=== PATIENT | female | born 1935 | race African-American/Black ===

== ENCOUNTER → 2016-06-11 | Outpatient (CLI) | payer MEDICARE, BC ==
[2015-11-12 01:23] VITALS: BP 158/69
[~2016-06-11] MED LIST: ALPR0.5T6 PO; ASPI-482 PO; CHLO25TA PO; CLON0.1T PO; CLON1PAT TD; HYDR100T24 PO; ISOS30TA17 PO; LOSA50TA6 PO; MAGN400C PO; METO-269 PO; NIFE30TA38 PO; OMEP20TA PO; OXYC-323 PO; POTA20TA12 PO; RANI150C PO; SIMV40TA3 PO
--- NOTE | 2016-06-12 14:33 | EKG ---
[facility] [address] [place] [address] Test Date: 2016-06-11 Test Time: 12:32:29 Pat Name: PATEL MC Department: Room: Gender: F Leather Splitter: Nathan Shepherd : 1935 Requested By: ARNAUD ALEJO Order Number: [id number] Reading MD: Interpretive Statements
== END | disposition home or self-care (01) ==
LOC: EKG 10:22
PROVIDERS: ATTEND Specialist
DX: R00.2 Palpitations (principal)
CPT/HCPCS: 93225; 93226

== ENCOUNTER → 2016-12-04 | Outpatient (CLI) | payer MEDICARE, BC ==
[2016-07-16 15:00] VITALS: BP 134/72
[~2016-12-04] MED LIST changes: +AMLO10TA2 PO; +ATOR40TA59 PO; +CLOP75TA PO; +FAMO20TA5 PO; +FURO20TA3; +FURO20TA3 PO; +HYDR50TA; +HYDR50TA PO; -ISOS30TA17 PO; +ISOS30TA19 PO; +ISOS30TA4 PO; +METO50TA2 PO; -OMEP20TA PO; +OMEP20TA8 PO; +POTA10TA12 PO; +RANI150T2; +TEMA15CA PO
--- NOTE | 2016-12-04 11:12 | KCIC ---
3 view right knee HISTORY: Right knee pain after a fall 4-6 weeks ago. COMPARISON: None FINDINGS: There is generalized bone demineralization. Soft tissue vascular type calcifications are noted. No evidence of an acute fracture or aggressive bone destruction. Note that the degree of demineralization could limit detection of a nondisplaced fracture. Joint spaces are intact. No evidence of dislocation. IMPRESSION: Bone demineralization. No definite acute radiographic abnormality. Electronically signed by: Macario Woodruff MD (12/04/2016 11:09 AM) [facility]
== END | disposition home or self-care (01) ==
LOC: KCIC 10:15
PROVIDERS: ATTEND Specialist
DX: M81.0 Age-related osteoporosis without current pathological fracture (principal); W19.XXXD Unspecified fall, subsequent encounter
CPT/HCPCS: 73562

== ENCOUNTER → 2016-12-04 | Outpatient (CLI) | payer MEDICARE, BC ==
[2016-07-16 15:00] VITALS: BP 134/72
--- NOTE | 2016-12-04 11:34 | KCIC ---
EXAM: Bilateral screening mammogram. HISTORY: 81-year-old female presents for screening mammography. TECHNIQUE: Full-field digital craniocaudal and mediolateral oblique views of both breasts are obtained for evaluation. Computer aided detection with [employer] software version 9.3 was applied. COMPARISON: 10/18/2015 BREAST PARENCHYMAL DENSITY: Level B - Scattered fibroglandular densities. FINDINGS: There is no new suspicious mass, microcalcification or region of architectural distortion. There is stable nodularity within the inferior, superior and retroareolar left breast. There are benign calcifications within both breasts. There is a left cardiac pacemaker partially included on the [id number]. IMPRESSION: BI-RADS Category 2: Benign finding(s). RECOMMENDATION: Annual mammography is recommended. If your mammogram demonstrates that you have dense breast tissue, which could hide abnormalities, and if you have other risk factors for breast cancer that have been identified, you might benefit from supplemental screening tests that may be suggested by your ordering physician. Dense breast tissue, in and of itself, is a relatively common condition. This information is not provided to cause undue concern, but rather to raise your awareness and to promote discussion with your physician regarding the presence of other risk factors, in addition to dense breast tissue. A report of your mammography results will be sent to you and your physician. You should contact your physician if you have any questions or concerns regarding this report. Mammography is a sensitive method for finding small breast cancers, but it does not detect them all and is not a substitute for careful clinical examination. A negative mammogram does not negate a clinically suspicious finding and should not result in delay in biopsying a clinically suspicious abnormality. PQRS compliance statement - Patient information was entered into a reminder system with a target due date for the next mammogram. "Our facility is accredited by the [employer] Mammography Program." Electronically signed by: Fe Whitten MD (12/04/2016 11:31 AM) [id number]
== END | disposition home or self-care (01) ==
LOC: KCIC MAMMO 10:11
PROVIDERS: ATTEND Specialist
DX: Z12.31 Encounter for screening mammogram for malignant neoplasm of breast (principal)
CPT/HCPCS: G0202; 77067

== ENCOUNTER → 2020-10-04 | Outpatient (CLI) | payer MEDICARE, MEDICAID ==
[2016-07-16 15:00] VITALS: BP 134/72
[~2020-10-04] MED LIST changes: +AMLO-187 PO; -AMLO10TA2 PO; +CALC-31 PO; +CETI10TA16 PO; -CHLO25TA PO; +CHLO25TA10 PO; +DOCU-109 PO; +FLUT10.6 IH; -ISOS30TA4 PO; +ISOS30TA68 PO; +LOSA-73 PO; -LOSA50TA6 PO; -METO50TA2 PO; +METO50TA6 PO; +NIFE-11 PO; -NIFE30TA38 PO; +NIFE30TA95 PO; -OXYC-323 PO; +OXYC1TAB15 PO; -POTA10TA12 PO; +POTASSIUM CHLO10 ME1 PO; +SIMV40TA18 PO; -SIMV40TA3 PO; +SPIR25TA5 PO
--- NOTE | 2020-10-04 15:40 | PDOC1 ---
INITIAL PAIN CONSULT DATE OF SERVICE: DOS: DATE: 10/04/20 TIME: 15:30 CHIEF COMPLAINT: Chief Complaint: Neck and bilateral upper extremity pain HISTORY OF PRESENT ILLNESS: 85-year-old female presents history of pain in the base the neck and bilateral shoulders right essentially equal to left with pain increasing over time patient reports has been that way for "many years" increasing over the past 6 months or so not the result of any specific injury or accident that she is aware of. Patient reports the pain is in the base of neck and shoulders rating the upper extremities mostly into the upper arms anteriorly in the bicep regions and occasionally the forearms mostly in the upper arms and neck patient reports this is worse with repetitive motions lifting items overhead with either of her arms sleeping at night has been disturbed because of the pain occasionally but not every night patient reports is better with sitting or laying down resting her head which is supported posteriorly worse with forward flexion and reading as well as reaching and weightbearing repetitive motions upper extremities. Patient reports of the arms are fatigued but no complete motor loss. Patient had cervical spine films showing severe disc degeneration from C3-T1 with mild to moderate cervical kyphosis. Patient has been taking oxycodone which does decrease the pain by about 50% also done physical therapy and has had some injections long time ago she is not sure what they were exactly physical therapy was helpful but only very briefly she still doing the exercises on her own at home. Patient also taking anti-inflammatory Motrin as well as Tylenol in addition to the oxycodone which both do help but only a small amount. PAST MEDICAL HISTORY: PMH: Hypertension, arthritis, heart disease, salivary gland tumor PREVIOUS SURGERIES: Past Surgical Hx: Appendectomy, cholecystectomy, hysterectomy, pacemaker placement, carpal tunnel release, right shoulder surgery, cataract extractions, salivary gland excision CURRENT MEDICATIONS: Current Meds: Active Scripts Medications Dose Route/Sig Max Daily Dose Days Date Category Spironolactone 25 Mg Tablet 1 Tab PO DAILY 10/04/20 Reported Nifedipine Er (Nifedipine) 30 Mg Tab.er.24 1 Tab PO DAILY 10/04/20 Reported Flovent 44MCG Hfa (Fluticasone Propionate) 10.6 Gm Aer.w.adap 2 Puff IH BID 10/04/20 Reported Calcium 500 + D Tablet (Calcium Carbonate/Vitamin D3) 1 Each Tablet 1 Tab PO DAILY 30 10/04/20 Reported Cetirizine Hcl 10 Mg Tablet 1 Tab PO DAILY 10/04/20 Reported Colace (Docusate Sodium) 100 Mg Capsule 100 Mg PO DAILY 10/04/20 Reported Aspir 81 (Aspirin) 81 Mg Tablet.dr 1 Tab PO DAILY 07/08/16 Reported Clopidogrel (Clopidogrel Bisulfate) 75 Mg Tablet 1 Tab PO DAILY 07/05/16 Reported Metoprolol Tartrate 50 Mg Tablet 50 Mg PO TID 07/05/16 Reported Atorvastatin Calcium 40 Mg Tablet 1 Tab PO QHS 07/05/16 Reported Magnesium (Magnesium Oxide) 400 Mg Capsule 1 Tab PO DAILY 02/08/15 Reported ALLERGIES; Allergies: Coded Allergies: Tetanus Vaccines and Toxoid (Verified Allergy, Severe, 07/15/16) SEVERE FAMILY HISTORY: Family Hx: No major medical problems or conditions that she is aware of SOCIAL HISTORY: Social Hx: Patient does not drink alcohol does not smoke not use any illegal illicit or recreational drugs is currently is retired and lives locally in [facility]. REVIEW OF SYSTEMS: ROS: Positive for those items mentioned in history of present illness, all systems are reviewed, otherwise negative ,and are complete full and well-documented on patient's chart. PHYSICAL EXAM: VS: Blood pressure is 120/75 pulse 87 respirations 18 temperature 98.0 F height is 5 feet 2 inches weight 139 pounds PE: PHYSICAL EXAMINATION: GENERAL: The patient is awake, alert, oriented, appropriate, very pleasant demeanor HEENT: Shows normocephalic, atraumatic. Extraocular movements are intact and symmetrical. Oral cavity: Mucous membranes moist and pink. NECK: Shows anterior throat supple without palpable lymphadenopathy noted. Swallow reflex symmetrical. CHEST: Shows normal on inspection. Breath sounds are clear bilaterally, distant but no rales rhonchi or wheezes auscultated. HEART: Shows S1, S2 clear. No murmurs auscultated. ABDOMEN: Soft, nontender, nondistended, obese. No palpable organomegaly is noted. No rebound or guarding demonstrated. BACK: Shows spine grossly in the midline. Normal-appearing cervical lordotic curvature. Cervical paraspinous muscles show symmetrical with inspection on palpation some moderate tenderness diffusely throughout the upper middle lower decrease the paraspinous muscle slightly more on the right than the left but present bilaterally into the superior medial trapezius as well but without asymmetry hypertrophy or atrophy. Patient shows no specific trigger points and no radiation of pain. Patient shows good rotation motion cervical spine both laterally greater than 45 degrees closer to 90 degrees without significant impairment with some mild guarding with extension but not with forward flexion and no radiation of pain with any rotational movement of the cervical spine. There is slightly increased thoracic kyphosis, some minor flattening of the lumbar lordotic curvature. EXTREMITIES: Upper extremities show deep tendon reflexes 2+ in the biceps and triceps tendons. Motor exam is 4 on a scale of 5 with right network systems consultant strength, biceps and triceps flexion and 5/5 on the left. Peripheral pulses are 2+ radial. No peripheral edema is noted bilaterally. Upper extremities are warm and dry to touch, equal in color and appearance. SKIN: Shows warm and dry, good turgor. No edema. No sores, rashes or bruising throughout. IMPRESSION: Impression: 85-year-old female with long history neck and bilateral upper extremity pain and radicular fashion Cervical spine films as noted Arthritis Hypertension Heart failure with pacemaker Plan: Options were discussed with patient including conservative medical management physical therapies interventional techniques. Patient would like to pursue interventional techniques as she is already doing physical therapy exercises and using oral analgesics and anti-inflammatories without significant decrease in pain. We discussed a cervical epidural steroid injection using descriptions as well as anatomical models to describe the procedure. Patient also taking Plavix and we will check with her co op to ensure that this is safe and appropriate to hold for 7 days prior to potential injection. Patient will continue with the Plavix until we receive word from her co op whether this is deemed safe and appropriate to hold. Patient will wait for preauthorization with her insurance provider and at that time we will plan on having her return for a translaminar C6-7 level cervical epidural steroid injection. DRAGAN MORALES MD October 04, 2020 15:40
== END | disposition home or self-care (01) ==
LOC: PNCL 13:32
PROVIDERS: ATTEND Anesthesiology
DX: M54.2 Cervicalgia (principal); M79.602 Pain in left arm; M79.601 Pain in right arm; I10 Essential (primary) hypertension; M19.90 Unspecified osteoarthritis, unspecified site; I11.9 Hypertensive heart disease without heart failure; J44.9 Chronic obstructive pulmonary disease, unspecified; K21.9 Gastro-esophageal reflux disease without esophagitis; F41.9 Anxiety disorder, unspecified; F32.9 Major depressive disorder, single episode, unspecified; Z90.49 Acquired absence of other specified parts of digestive tract; Z90.710 Acquired absence of both cervix and uterus; Z98.890 Other specified postprocedural states; Z87.891 Personal history of nicotine dependence; Z79.82 Long term (current) use of aspirin; Z79.899 Other long term (current) drug therapy; Z88.8 Allergy status to other drugs, medicaments and biological substances; Z82.49 Family history of ischemic heart disease and other diseases of the circulatory system
CPT/HCPCS: G0463

== ENCOUNTER → 2020-10-25 | Outpatient (CLI) | payer MEDICARE, MEDICAID ==
[2016-07-16 15:00] VITALS: BP 134/72
[~2020-10-25] MED LIST changes: +IOHEXOL 180 MG/ML 10 ML VIAL. ONE; +methylPREDNISolone ACETATE 40 MG/ML VIAL. ONE; +methylPREDNISolone ACETATE 80 MG/ML VIAL. ONE
--- NOTE | 2020-10-25 13:02 | PDOC4 ---
PROCEDURE Procedure Patient was consented for cervical epidural steroid injection. Risks were d iscussed including but not limited to: Bleeding, infection, possibility of epidural hematoma and subsequent neurological compromise, dural puncture, headaches, spinal cord and/or nerve damage, side effects of steroid medication, and poor results regarding pain control. Patient understands and wished to proceed. Procedure cervical epidural steroid injection at the C6-7 level, using local anesthetic under sterile prep and drape using C-arm fluoroscopic guidance under local anesthesia medications injected ;120 mg Depo-Medrol +5 mL normal saline and 2 mL contrast; condition at discharge is stable patient tolerated procedure well. and had no complications DRAGAN MORALES MD October 25, 2020 13:02
--- NOTE | 2020-10-25 13:02 | PDOC ---
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 Patient is obtained that now is been off of it for now 7 days and still work terms reporting pain base the neck left shoulder more than the right but present bilaterally patient reports is worse with repetitive motions weightlifting reaching over her head with her left arm difficulty with some sleeping at night as well patient reports no new motor or sensory deficits describes the pain as aching and tight shooting severe at most times patient rates is a 9 on scale 10 is average in the last week 10 at its worst and 9 its least is a 9 today. Patient reports no new motor or sensory deficits or other complaints. Physical Exam: VS: Pressure is 131/65 pulse 88 respirations 18 temperature 98.3 F weight is 142 pounds PE: PHYSICAL EXAMINATION: GENERAL: The patient is awake, alert, oriented, appropriate, very pleasant demeanor HEENT: Shows normocephalic, atraumatic. Extraocular movements are intact and symmetrical. Oral cavity: Mucous membranes moist and pink. Dentition is intact. NECK: Shows anterior throat supple without palpable lymphadenopathy noted. Swallow reflex symmetrical. CHEST: Shows normal on inspection. Breath sounds are clear bilaterally, no rales rhonchi or wheezes auscultated. HEART: Shows S1, S2 clear. No murmurs auscultated. ABDOMEN: Soft, nontender, nondistended, obese. No palpable organomegaly is noted. No rebound or guarding demonstrated. BACK: Shows spine grossly in the midline. Normal-appearing cervical lordotic curvature. Cervical paraspinous muscles show symmetrical inspection on palpation some moderate tenderness diffusely in inferior aspect cervical paraspinous muscle bilaterally slightly more on the left than the right at the superior medial trapezius, but without asymmetry without atrophy hypertrophy or trigger points. There is slightly increased thoracic kyphosis, some minor flattening of the lumbar lordotic curvature. EXTREMITIES: Upper extremities show deep tendon reflexes 2+ in the biceps and triceps tendons. Motor exam is 4 on a scale of 5 with right triage register nurse strength, biceps and triceps flexion and 5/5 on the left. Peripheral pulses are 2+ radial. No peripheral edema is noted bilaterally. Upper extremities are warm and dry to touch, equal in color and appearance. SKIN: Shows warm and dry, good turgor. No edema. No sores, rashes or bruising throughout. Procedure: Procedure: Options were discussed with the patient. Patient's old chart was reviewed as her current medication regimen updated current review of systems updated today as well. We will proceed with a cervical epidural steroid injection today with fluoroscopic guidance. Risks were discussed including but not limited to: Bleeding, infection, possibility of epidural hematoma and subsequent neurological compromise, dural puncture, headaches, spinal cord and/or nerve damage, side effects of steroid medication, and poor results regarding pain control. Patient understands and wished to proceed. Patient will return to the clinic in approximately 2 weeks for follow-up, was counseled as to return appointment activity level and side effects to be aware of. Patient will restart Plavix tomorrow October 26. Medication Injected: Med Injected: Procedure cervical epidural steroid injection at the C6-7 level, using local anesthetic under sterile prep and drape using C-arm fluoroscopic guidance under local anesthesia medications injected ;120 mg Depo-Medrol +5 mL normal saline and 2 mL contrast; condition at discharge is stable patient tolerated procedure well. and had no complications Condition at Discharge: Condition at Discharge: Condition at discharge stable, patient already the procedure well and had no complications. DRAGAN MORALES MD October 25, 2020 13:02
== END | disposition home or self-care (01) ==
LOC: PNCL 11:54
PROVIDERS: ATTEND Anesthesiology
DX: M50.10 Cervical disc disorder with radiculopathy, unspecified cervical region (principal); I10 Essential (primary) hypertension; E78.00 Pure hypercholesterolemia, unspecified; J44.9 Chronic obstructive pulmonary disease, unspecified; K21.9 Gastro-esophageal reflux disease without esophagitis; M19.90 Unspecified osteoarthritis, unspecified site; F41.9 Anxiety disorder, unspecified; F32.9 Major depressive disorder, single episode, unspecified; Z87.440 Personal history of urinary (tract) infections; Z90.710 Acquired absence of both cervix and uterus; Z90.49 Acquired absence of other specified parts of digestive tract; Z98.890 Other specified postprocedural states; Z79.899 Other long term (current) drug therapy; Z79.82 Long term (current) use of aspirin; Z88.1 Allergy status to other antibiotic agents; Z88.8 Allergy status to other drugs, medicaments and biological substances; Z82.49 Family history of ischemic heart disease and other diseases of the circulatory system
CPT/HCPCS: 62321; J1030; J1040; Q9965